=== PATIENT | female | born 1970 | race Asian ===

== ENCOUNTER 2017-09-22 20:43 | Emergency (ER) | payer MEDICAID ==
--- NOTE | 2017-09-22 21:28 | EDPHY ---
H & P Smoking Status: Never smoked Time Seen by Provider: 09/22/17 21:11 HPI/ROS: Chief complaint. Fever HPI. 47-year-old female presents with fever for 3 days. She has sore throat cough and achiness. She took 1 Advil for fever 1 hr ago. No rash. No nausea vomiting or diarrhea. No urinary symptoms. Exposure to sick coworkers otherwise no recent travel. Normally healthy ROS Constitutional. Fever Eyes. no problems with vision ENT. Sore throat Cardiovascular. no chest pain Respiratory. Cough Abdominal. no abdominal pain, no nausea/vomiting, no diarrhea . no problems urinating MS. Myalgias Skin. no rash Lymph. no swollen glands Neuro. no headache, no dizziness, no difficulty walking or with speech (Bright Alvares) Past Medical/Surgical History: Healthy (Bright Alvares) Social History: , nonsmoker, no alcohol (Bright Alvares) Physical Exam: General Appearance: Alert well-developed female moderate distress vital signs show temp 39.1 degrees with heart rate 104 Eyes: Pupils equal and round no pallor or injection. ENT, pharynx slightly injected without exudate. Mucous membranes are moist. Tympanic membranes are normal Respiratory: There are no retractions, lungs are clear to auscultation. Cardiovascular: Regular rate and rhythm. Gastrointestinal: Abdomen is soft and nontender, no masses, bowel sounds normal. Neurological: Awake and alert, sensory and motor exams grossly normal. Skin: Warm and dry, no rashes. Musculoskeletal: Neck is supple nontender. Extremities symmetrical, full range of motion. Psychiatric: Patient is oriented X 3, there is no agitation. (Bright Alvares) Constitutional: Initial Vital Signs Temperature (C) 39.1 C H 09/22/17 20:53 Heart Rate 104 H 09/22/17 20:53 Respiratory Rate 18 09/22/17 20:53 Blood Pressure 133/74 H 09/22/17 20:53 O2 Sat (%) 94 09/22/17 20:53 O2 Delivery Mode Room Air Allergies/Adverse Reactions: alcohol Allergy (Verified 09/22/17 20:58) Home Medications: Medication Instructions Recorded IBUPROFEN 09/22/17 Nyquil 09/22/17 Theraflu Expressmax Cold-Cough 09/22/17 Amox Tr/K Clav (Augmentin) 500 mg PO Q8 #30 tab 09/23/17 [Augmentin 500/125 MG TAB (*)] Medical Decision Making Procedures: IV normal saline. Tylenol and ibuprofen. 1 L fluids. Flu swab (Bright Alvares ) Other Provider: 2300 patient signed out to me from Dr. Alvares. 47-year-old woman with no significant medical history presenting with fevers chills and flu-like symptoms. She is febrile here. She has negative chest x-ray. She has had inadequate fever control at home. She is receiving IV fluids, has received antipyretics here. Will follow up on remainder of her studies and reassess for improvement in her condition. Chest x-ray positive for possible left lower lobe pneumonia. UA positive for UTI. Given these possible to infections will start her on Augmentin. She will follow up with primary care physician as an outpatient. (Blaze Daniels) Care Turn Over: Care to at 2300 (Bright Alvares) - Data Points Laboratory Results: Laboratory Results 09/22/17 22:20 09/22/17 22:20 Medications Given: Discontinued Medications Acetaminophen (Tylenol) 650 mg PO EDNOW ONE Stop: 09/22/17 21:35 Last Admin: 09/22/17 22:18 Dose: 650 mg Amoxicillin/Clavulanate Potassium (Augmentin 500/125mg Tab) 500 mg PO EDNOW ONE PRN Reason: Protocol Stop: 09/23/17 00:02 Last Admin: 09/23/17 00:17 Dose: 500 mg Sodium Chloride (Ns) 1,000 mls @ 0 mls/hr IV ONCE ONE; Wide Open PRN Reason: Protocol Stop: 09/22/17 21:36 Last Admin: 09/22/17 22:16 Dose: 1,000 mls Ibuprofen (Motrin) 400 mg PO EDNOW ONE Stop: 09/22/17 21:36 Last Admin: 09/22/17 22:17 Dose: 400 mg Departure - Departure Disposition: Home, Routine, Self-Care Clinical Impression: UTI (urinary tract infection), Pneumonia Condition: Good Instructions: Urinary Tract Infection in Women (DC), Pneumonia (ED) Additional Instructions: Please take her full course of antibiotics. Follow up with her primary care physician in 2-3 days for re-evaluation. Return to the emergency department for increasing fevers or chills, worsening cough, difficulty breathing, abdominal pain, or any other concerns. Referrals: Red Medina MD [[facility] [place] Primary Care Provider] - As per Instructions Prescriptions: Amox Tr/K Clav (Augmentin) [Augmentin 500/125 MG TAB (*)] 500 mg PO Q8 #30 tab
[2017-09-22] MEDS ORDERED: ACETAMINOPHEN 325 MG TAB PO ONE (21:34)
[2017-09-22] MEDS ORDERED: IBUPROFEN 200 MG TAB PO ONE (21:35)
[2017-09-22] MEDS ORDERED: NS 1,000 ML IV ONE (21:35)
[2017-09-22 22:20] VITALS: RESP 16
[2017-09-22 22:35] LABS: PLATELET COUNT 242 10^3/uL (150-400)
[2017-09-22 23:23] VITALS: BP 117/82; TEMP 98.8
[2017-09-23] MEDS ORDERED: AMOX/CLAVULANATE 500/125 MG TAB PO ONE (00:01)
[2017-09-23 00:26] VITALS: PULSE 80; O2SAT 95
== END 2017-09-23 00:20 | disposition home or self-care (01) ==
DX: N39.0 Urinary tract infection, site not specified (principal); B96.89 Other specified bacterial agents as the cause of diseases classified elsewhere; J18.9 Pneumonia, unspecified organism; E86.9 Volume depletion, unspecified

== ENCOUNTER → 2017-09-28 | Outpatient (CLI) | payer MEDICAID | LOC: FIMAGING 14:09 | PROVIDERS: ATTEND Specialist | DX: Z12.31 Encounter for screening mammogram for malignant neoplasm of breast (principal) ==